=== PATIENT | male | born 1990 ===

== ENCOUNTER 2020-09-17 13:36 | Outpatient (CLI) | payer OTHER | END 2020-09-17 14:50 | disposition home or self-care (01) | LOC: RAD 13:36 | DX: D16.21 Benign neoplasm of long bones of right lower limb (principal) ==

== ENCOUNTER 2020-09-17 15:28 | Outpatient (CLI) | payer OTHER | END 2020-09-17 15:30 | disposition home or self-care (01) | LOC: LAB 15:28 | PROVIDERS: ATTEND Otolaryngology Otology & Neurotology | DX: Z01.812 Encounter for preprocedural laboratory examination (principal) ==

== ENCOUNTER 2021-04-21 17:10 | Outpatient (CLI) | payer OTHER | END 2021-04-21 17:14 | disposition home or self-care (01) | LOC: LAB 17:10 | DX: Z03.818 Encounter for observation for suspected exposure to other biological agents ruled out (principal) ==

== ENCOUNTER → 2021-06-17 | Outpatient (CLI) | payer OTHER | END | disposition home or self-care (01) | LOC: PPH VACUNA 08:00 | PROVIDERS: ATTEND Emergency Medicine Pediatric Emergency Medicine | DX: Z23 Encounter for immunization (principal) ==

== ENCOUNTER 2021-08-04 08:30 | Outpatient (CLI) | payer OTHER | END 2021-08-04 08:32 | disposition home or self-care (01) | LOC: LAB 08:30 | PROVIDERS: ATTEND Otolaryngology Otology & Neurotology | DX: Z20.828 Contact with and (suspected) exposure to other viral communicable diseases (principal) ==